=== PATIENT | male | born 1960 | race Caucasian/White ===

== ENCOUNTER 2019-09-23 15:29 | Emergency (ER) | payer MEDICAID ==
[~2019-09-23] VITALS: Ht 165.1 cm; Wt 70.3 kg
--- NOTE | 2019-09-23 15:57 | NUR ---
ED Nurse Note: PT ARRIVED WITH RA 58 STATING THAT "HE CANNOT MOVE", PT STATES THAT HE THINK HE HAS SCABIES. PT AMBULATED TO RESTROOM TO URINATE.
[2019-09-23 15:58] VITALS: BP 110/72
--- NOTE | 2019-09-23 16:10 | Emergency Room Report ---
History of Present Illness General Chief Complaint: Generalized Weakness Source: Patient Present Illness HPI 59 YO male presents to the ED c/o Itchy rash on bilateral extremities that he believes is Scabies. Pt. also reports hx of right wrist fracture 4 weeks ago and requests a splint. Pt. denies pain. Pt. denies fevers, chills or swollen tender lymph nodes. Denies lesions/rashes elsewhere on the body. Denies new medications or body washes or creams. Denies swelling of the lips, tongue , throat or airway. He reports having an episode of feeling as though he could not breath while awaiting to be seen. He denies cough. He denies feeling SOB now. Denies wheezing. Denies recent travel, recent illness or ill contacts. denies blisters, oral lesions, or sloughing of the skin. Allergies: Coded Allergies: No Known Allergies (Unverified , 09/23/19) COVID-19 Screening Contact w/high risk pt: No Experienced COVID-19 symptoms?: No COVID-19 Testing performed RAMPMAN: No Patient History Past Medical History: see triage record Past Surgical History: none Pertinent Family History: none Reviewed Nursing Documentation: PMH: Agreed; PSxH: Agreed Nursing Documentation-PMH Hx Cardiac Problems: No Hx Hypertension: No Hx Pacemaker: No Hx Asthma: No Hx COPD: No Hx Diabetes: No Hx Cancer: No Hx Gastrointestinal Problems: No Hx Dialysis: No History Of Psychiatric Problem: Yes - depression, drug abuse Hx Neurological Problems: No Hx Cerebrovascular Accident: No Hx Seizures: No Review of Systems All Other Systems: negative except mentioned in HPI Physical Exam Vital Signs Date Time Temp Pulse Resp B/P (MAP) Pulse Ox O2 Delivery O2 Flow Rate FiO2 09/23/19 15:34 98.8 82 18 110/72 (85) 98 Room Air Sp02 EP Interpretation: reviewed, normal General Appearance: no apparent distress, alert, GCS 15, non-toxic Head: normocephalic, atraumatic Eyes: bilateral eye normal inspection, bilateral eye PERRL ENT: hearing grossly normal, normal voice Neck: full range of motion, other - no stridor Respiratory: chest non-tender, lungs clear, normal breath sounds, no respiratory distress, no accessory muscle use, no wheezing, speaking full sentences Cardiovascular #1: regular rate, rhythm, no edema, normal capillary refill Cardiovascular #2: 2+ radial (R), 2+ radial (L) Musculoskeletal: back normal, normal range of motion, gait/station normal, non- tender, other - bony deformity of the right wrist. Neurologic: alert, motor strength/tone normal, oriented x3, sensory intact, responsive, speech normal Psychiatric: judgement/insight normal Skin: rash - diffuse erythematous papules on the bilateral forearms and upper arms. No blisters or vessicles. No sloughing of the skin. No erythema or warmth. Lymphatic: no adenopathy Medical Decision Making PA Attestation Dr. Goss is my supervising Physician whom patient management has been discussed with. Diagnostic Impression: Primary Impression: Scabies Additional Impression: Rash and nonspecific skin eruption ER Course 59 YO male presents to the ED c/o Itchy rash on bilateral extremities that he believes is Scabies. Pt. also reports hx of right wrist fracture 4 weeks ago and requests a splint. Pt. denies pain. Pt. denies fevers, chills or swollen tender lymph nodes. Denies lesions/rashes elsewhere on the body. Denies new medications or body washes or creams. Denies swelling of the lips, tongue , throat or airway. He reports having an episode of feeling as though he could not breath while awaiting to be seen. He denies cough. He denies feeling SOB now. Denies wheezing. Denies recent travel, recent illness or ill contacts. denies blisters, oral lesions, or sloughing of the skin. Ddx considered but are not limited to cellulitis, scabies, shingles, varicella, dermatitis, urticaria, eczema, tinea, viral exanthem, SJS Vital signs: are WNL, pt. is afebrile H&PE are most consistent with nonspecific rash of the bilateral UE's possibly scabies vs heat rash. No stridor. Pt. sleeping calmly in chair. Pt. NAD, non- toxic in appearance. Not in respiratory distress. ORDERS: none required at this time, the diagnosis is clinical ED INTERVENTIONS: -Right Wrist Splint applied by claim technician. Pt. remains neurovascularly intact. DISCHARGE: At this time pt. is stable for d/c to home. Will provide printed patient care instructions, and any necessary prescriptions. Care plan and follow up instructions have been discussed with the patient prior to discharge. Last Vital Signs Date Time Temp Pulse Resp B/P (MAP) Pulse Ox O2 Delivery O2 Flow Rate FiO2 09/23/19 15:58 82 18 Room Air 09/23/19 15:58 98.8 110/72 98 Status: improved Disposition: HOME, SELF-CARE Condition: Stable Scripts Diphenhydramine Hcl (BENADRYL ALLERGY) 25 Mg Tablet 25 MG PO Q6HR, #20 TAB Prov: Gilma Simmons 09/23/19 Permethrin* (ELIMITE*) 60 Gm Cream..g. 1 APPLIC TOPIC ONCE, #60 GM 0 Refills Apply cream from head to toe; leave on for 8-14 hours before washing off with water; may reapply in 1 week if live mites appear. Prov: Gilma Simmons 09/23/19 Patient Instructions: Rash, [id number], Scabies, Pediatric Additional Instructions: Take medications as directed. Follow up with a Primary Care Provider in 3-5 days, even if your symptoms have resolved. --Please review list of primary care clinics, if you do not already have a primary care provider Return sooner to ED if new symptoms occur, or current symptoms become worse. - Please note that this Emergency Department Report was dictated using Opternativechemistry technician technology software, occasionally this can lead to erroneous entry secondary to interpretation by the dictation equipment. Gilma Simmons Sep 23, 2019 16:10
[2019-09-23] MEDS ORDERED: BENADRYL ALLERG25 M1 PO (16:23)
[2019-09-23] MEDS ORDERED: PERMETHRIN60 GM TOPIC (16:23)
[2019-09-23 16:25] VITALS: BP 118/79
--- NOTE | 2019-09-23 16:25 | NUR ---
ER DISCHARGE NOTE: Patient is cleared to be discharged per ERMD, pt is aox4, on room air, with stable vital signs. pt was given dc instructions, pt was able to verbalize understanding, pt id band removed. pt is able to ambulate with steady gait. pt took all belongings.
--- NOTE | 2019-09-23 16:47 | NUR ---
ED Nurse Note: Patient provided with right wrist brace prior to departure to the bus to go home.
== END 2019-09-23 16:25 | disposition home or self-care (01) ==
LOC: EDBD 15:29 → EMR 16:20
DX: B86 Scabies (principal); F32.9 Major depressive disorder, single episode, unspecified
CPT/HCPCS: 29125; Z7502; 99283